=== PATIENT | male | born 1955 | race Caucasian/White ===

== ENCOUNTER 2017-03-21 19:13 | Observation (INO) | payer MEDICAID ==
[2017-03-21 19:16] VITALS: BMI 30.9
--- NOTE | 2017-03-21 20:00 | ED PDOC ---
Arrival/HPI - General Chief Complaint: Abdominal Pain Time Seen by Provider: 03/21/17 19:24 Historian: Patient - History of Present Illness Narrative History of Present Illness (Text): 03/21/17 20:00 61 year old male with no significant past medical history presents to the emergency department for evaluation of left upper abdominal discomfort that began suddenly 2 days ago and has remained constant. Patient states he is unsure how it began but states it is possible that something he lifted caused the discomfort. No nausea, vomiting, or diarrhea. No back pain. No fever or chills. Appetite intact. No chest pain or shortness of breath. No history of blunt trauma. Time/Duration: < week Symptom Onset: Sudden Symptom Course: Unchanged Modifying Factors (Text): None Past Medical History - Provider Review Nursing Documentation Reviewed: Yes - Infectious Disease Hx of Infectious Diseases: None - Tetanus Immunization Tetanus Immunization: Unknown - Past Medical History Past Medical History: No Previous - Psychiatric Hx Depression: No Hx Emotional Abuse: No Hx Physical Abuse: No Hx Substance Use: No - Past Surgical History Past Surgical History: Non-Contributing - Anesthesia Hx Anesthesia: Yes - Suicidal Assessment Feels Threatened In Home Enviroment: No Family/Social History - Physician Review Nursing Documentation Reviewed: Yes Family/Social History: Unknown Family HX Smoking Status: Never Smoked Hx Alcohol Use: No Hx Substance Use: No Hx Substance Use Treatment: No Allergies/Home Meds Allergies/Adverse Reactions: Allergies No Known Allergies Allergy (Verified 03/21/17 19:16) Home Medications: Home Meds Medication Instructions Recorded Confirmed Unobtainable 03/21/17 03/21/17 Review of Systems - Physician Review All systems were reviewed & negative as marked: Yes - Review of Systems Constitutional: Other (No chills). absent: Fevers Respiratory: absent: SOB Cardiovascular: absent: Chest Pain Gastrointestinal: Abdominal Pain (Left upper ). absent: Diarrhea, Nausea, Vomiting, Appetite Changes Musculoskeletal: absent: Back Pain Physical Exam Vital Signs Reviewed: Yes Vital Signs Temp Pulse Resp BP Pulse Ox 03/21/17 22:27 93 H 18 163/100 H 95 03/21/17 19:19 98.0 F 91 H 18 159/97 H 97 Temperature: Afebrile Blood Pressure: Normal Pulse: Regular Respiratory Rate: Normal Appearance: Positive for: Well-Appearing, Non-Toxic Mental Status: Positive for: Alert and Oriented X 3 - Systems Exam Head: Present: Atraumatic, Normocephalic Pupils: Present: PERRL Extroacular Muscles: Present: EOMI Conjunctiva: Present: Normal Mouth: Present: Moist Mucous Membranes Neck: Present: Normal Range of Motion, Other (Supple) Respiratory/Chest: Present: Clear to Auscultation, Good Air Exchange, Other (No palpable rib tenderness). No: Respiratory Distress, Accessory Muscle Use Cardiovascular: Present: Regular Rate and Rhythm, Normal S1, S2. No: Murmurs Abdomen: Present: Tenderness (Palpable tenderness to left upper abdominal area) , Normal Bowel Sounds. No: Distention, Peritoneal Signs, Rebound, Guarding Back: Present: Normal Inspection. No: CVA Tenderness Upper Extremity: Present: Normal Inspection, Normal ROM. No: Cyanosis, Edema Lower Extremity: Present: Normal Inspection, Normal ROM. No: Edema Neurological: Present: GCS=15, CN II-XII Intact, Speech Normal, Other (No focal neurological deficits) Skin: Present: Warm, Dry, Normal Color. No: Rashes Psychiatric: Present: Alert, Oriented x 3, Normal Insight, Normal Concentration Medical Decision Making ED Course and Treatment: Impression: 61 year old male with no significant past medical history presents to the emergency department for evaluation of left upper abdominal discomfort that began suddenly 2 days ago and has remained constant. Differential Diagnosis included but are not limited to: intractable abdominal pain Plan: -- CT Abdomen/Pelvis, EKG, Chest X-ray -- Labs -- Reassess and disposition Progress Notes: 03/21/17 21:24 Reviewed EKG, NSR at [address]-segment elevations or depressions, no T-wave inversions, normal intervals. Chest X-ray shows: hypoinflation. Retrocardiac opacity of unclear significance. Recommend chest PA and lateral or CT of the chest for further evaluation. 03/21/17 23:[address] Chest, shows: Unremarkable noncontrast enhanced CT examination of the chest, as detailed above. CT Abdomen and Pelvis shows: 19 mm rounded focus of soft tissue attenuation exophytic to the upper pole of the right kidney for which a dedicated renal ultrasound is recommended, for further evaluation. 03/21/17 23:[address] Marti, who is aware and agrees with plan. Accepts pt in to hospitalist service. [facility] to [facility] observation for intractable abdominal pain. resident care assistant notified. - Lab Interpretations Lab Results: 03/21/17 20:31 03/21/17 20:31 Lab Results 03/21/17 20:31: PT 10.2, INR 0.94, APTT 28.3 03/21/17 20:31: WBC 11.3 H, RBC 6.85 H, Hgb 14.0, Hct 42.5, MCV 62.0 L, MCH 20.4 L, MCHC 32.9, RDW 17.8 H, Plt Count 186 03/21/17 20:31: Sodium 136, Potassium 4.3, Chloride 99, Carbon Dioxide 28, Anion Gap 13, BUN 18, Creatinine 0.9, Est GFR ( Amer) > 60, Est GFR (Non- Af Amer) > 60, Random Glucose 117 H, Calcium 9.2, Total Bilirubin 0.7, AST 41, ALT 31, Alkaline Phosphatase 90, Lactate Dehydrogenase 443, Total Creatine Kinase 96, Troponin I < 0.01, Total Protein 7.9, Albumin 4.1, Globulin 3.8, Albumin/Globulin Ratio 1.1, Lipase 163 I have reviewed the lab results: Yes - RAD Interpretation Narrative RAD Interpretations (Text): CT Chest shows: Lungs: No mass. No consolidation. Pleural spaces: No significant effusion. No pneumothorax. Heart: No cardiomegaly. No significant pericardial effusion. Vasculature: No aortic aneurysm. Lymph nodes: No pathologically enlarged lymph nodes. Bones: No acute fracture. IMPRESSION: Unremarkable noncontrast enhanced CT examination of the chest, as detailed above. CT Abdomen and Pelvis shows: Lower thorax: The bilateral lung bases are clear. ABDOMEN: Liver: No acute findings Gallbladder and bile ducts: No acute finding. No calcified stones. No intra- extrahepatic biliary ductal dilation. Pancreas: Limited evaluation secondary to the lack of intravenous contrast. Spleen: No acute findings. Adrenals: No acute findings. Kidneys and ureters: No obstructing stones. No hydronephrosis. A 19 mm focus of soft tissue attenuation is identified within the upper pole of the right kidney. Moderate right-sided perinephric inflammatory change is identified. PELVIS: Bladder: No acute findings. Reproductive: No acute findings. Appendix: The appendix is of normal-caliber (series 2, image 184). ABDOMEN and PELVIS: Stomach and bowel: No acute findings. Peritoneum: No acute findings. Lymph nodes: Limited evaluation without intravenous contrast. Vasculature: No aortic aneurysm. Bones: No acute fracture. IMPRESSION: 19 mm rounded focus of soft tissue attenuation exophytic to the upper pole of the right kidney for which a dedicated renal ultrasound is recommended, for further evaluation. Radiology Orders: 03/21/17 19:51 ABD & PELVIS W/O PO OR IV CONT [CT] Stat 03/21/17 19:52 CHEST PORTABLE [RAD] Stat 03/21/17 21:50 CHEST W/O CONTRAST [CT] Stat Data Lead: Radiologist - EKG Interpretation Interpreted by ED Physician: Yes Type: 12 lead EKG - Medication Orders Current Medication Orders: Discontinued Medications Iohexol (Omnipaque 350 150 Ml) Confirm Administered Dose 150 ml .ROUTE .STK-MED ONE Stop: 03/21/17 22:19 Ketorolac Tromethamine (Toradol) 30 mg IVP ONCE ONE Stop: 03/21/17 23:36 - Scribe Statement The provider has reviewed the documentation as recorded by the Johnie Sparrow Provider Scribe Attestation: All medical record entries made by the Johnie were at my direction and personally dictated by me. I have reviewed the chart and agree that the record accurately reflects my personal performance of the history, physical exam, medical decision making, and the department course for this patient. I have also personally directed, reviewed, and agree with the discharge instructions and disposition. Disposition/Present on Arrival - Present on Arrival Any Indicators Present on Arrival: No History of DVT/PE: No History of Uncontrolled Diabetes: No Urinary Catheter: No History of Decub. Ulcer: No History Surgical Site Infection Following: None - Disposition Have Diagnosis and Disposition been Completed?: Yes Diagnosis: Intractable abdominal pain Disposition: HOSPITALIZED Disposition Time: 23:43 Patient Plan: Observation Condition: STABLE Referrals: Latasha Peng MD [Primary Care Provider] - Follow up with primary
--- NOTE | 2017-03-21 20:35 | RAD ---
HISTORY: abdominal pain COMPARISON: Chest x-ray performed 12/08/13 TECHNIQUE: Chest, one view. FINDINGS: Examination limited by habitus and hypoinflation. LUNGS: Retrocardiac opacity of unclear significance. Please note that chest x-ray has limited sensitivity for the detection of pulmonary masses. PLEURA: No significant pleural effusion identified. No definite pneumothorax . CARDIOVASCULAR: Heart size appears within normal limits. Atherosclerotic calcifications. OSSEOUS STRUCTURES: Degenerative changes of the spine. VISUALIZED UPPER ABDOMEN: Eventration of the right hemidiaphragm. OTHER FINDINGS: None. IMPRESSION: Hypoinflation. Retrocardiac opacity of unclear significance. Recommend chest PA and lateral or CT of the chest for further evaluation.
[2017-03-21 20:58] LABS: HEMATOCRIT 42.5 % (42.0-52.0); MEAN CORPUSCULAR HEMOGLOBIN 20.4 pg (25.0-35.0); MEAN CORPUSCULAR HGB CONC 32.9 g/dl (31.0-37.0); PLATELET COUNT 186 10^3/uL (120.0-450.0); RED CELL DISTRIBUTION WIDTH 17.8 % (11.5-14.5); WHITE BLOOD COUNT 11.3 10^3/ul (4.5-11.0)
[2017-03-21 21:05] LABS: ALB/GLOB RATIO 1.1 (1.1-1.8); ALKALINE PHOSPHATASE 90 U/L (38-133); ALT/SGPT 31 U/L (7-56); AST/SGOT 41 U/L (15-59); BILIRUBIN,TOTAL 0.7 mg/dL (0.2-1.3); BLOOD UREA NITROGEN 18 mg/dL (7-21); CALCIUM 9.2 mg/dL (8.4-10.5); CARBON DIOXIDE 28 mmol/L (21-33); CHLORIDE 99 mmol/L (98-107); GFR AFRICAN-AMERICAN > 60; GLUCOSE,RANDOM 117 mg/dL (70-110); LIPASE 163 U/L (23-300); POTASSIUM 4.3 mmol/L (3.6-5.0); SODIUM 136 mmol/L (132-148); TOTAL PROTEIN 7.9 g/dL (5.8-8.3)
[2017-03-21 21:11] LABS: INR 0.94 (0.93-1.08); PARTIAL THROMBOPLASTIN TIME 28.3 Seconds (23.7-30.8)
[2017-03-21 21:22] LABS: TROPONIN I < 0.01 ng/mL
--- NOTE | 2017-03-21 23:23 | CT ---
EXAM: CT Abdomen and Pelvis Without Intravenous Contrast CLINICAL HISTORY: 61 years old, male; Pain; Abdominal pain; Generalized; Additional info: Left upper abdominal pain TECHNIQUE: Axial computed tomography images of the abdomen and pelvis without intravenous contrast. This CT exam was performed using one or more of the following dose reduction techniques: automated exposure control, adjustment of the mA and/or kV according to patient size, and/or use of iterative reconstruction technique. Coronal and sagittal reformatted images were created and reviewed. COMPARISON: No relevant prior studies available. FINDINGS: Lower thorax: The bilateral lung bases are clear. ABDOMEN: Liver: No acute findings Gallbladder and bile ducts: No acute finding. No calcified stones. No intra-extrahepatic biliary ductal dilation. Pancreas: Limited evaluation secondary to the lack of intravenous contrast. Spleen: No acute findings. Adrenals: No acute findings. Kidneys and ureters: No obstructing stones. No hydronephrosis. A 19 mm focus of soft tissue attenuation is identified within the upper pole of the right kidney. Moderate right-sided perinephric inflammatory change is identified. PELVIS: Bladder: No acute findings. Reproductive: No acute findings. Appendix: The appendix is of normal-caliber (series 2, image 184). ABDOMEN and PELVIS: Stomach and bowel: No acute findings. Peritoneum: No acute findings. Lymph nodes: Limited evaluation without intravenous contrast. Vasculature: No aortic aneurysm. Bones: No acute fracture. IMPRESSION: 19 mm rounded focus of soft tissue attenuation exophytic to the upper pole of the right kidney for which a dedicated renal ultrasound is recommended, for further evaluation. EXAM: CT Chest Without Intravenous Contrast CLINICAL HISTORY: 61 years old, male; Pain; Abdominal pain; Generalized; Additional info: Left upper abdominal pain TECHNIQUE: Axial computed tomography images of the chest without intravenous contrast. COMPARISON: No relevant prior studies available. FINDINGS: Lungs: No mass. No consolidation. Pleural spaces: No significant effusion. No pneumothorax. Heart: No cardiomegaly. No significant pericardial effusion. Vasculature: No aortic aneurysm. Lymph nodes: No pathologically enlarged lymph nodes. Bones: No acute fracture. IMPRESSION: Unremarkable noncontrast enhanced CT examination of the chest, as detailed above.
[2017-03-22] MEDS ORDERED: Magnesium Citrate Oral SOL (300 ml) PO ONE (00:36)
[2017-03-22] MEDS ORDERED: Albuterol 0.083% Inhal Sol (2.5 mg/3 mL) UD IH PRN (00:37)
[2017-03-22] MEDS ORDERED: Alum-Mag Hydrox-Simethicone Susp (30 mL) PO STA (00:38)
--- NOTE | 2017-03-22 00:44 | CP.PCM.HP ---
<CamillaCristino armijo - Last Filed: 03/22/17 00:41> History of Present Illness - History of Present Illness History of Present Illness: CC: Abdominal Pain This is a 61yo M who has a PMHx of Gout who is presenting to the ED w/ a 2d history of constipation after eating street food in [facility]; states after he ate it instead of having his normal 3 bowel movements a day he is only having 2 bowel movements a day which is causing him great discomfort. It is not associated with any other symptoms; no fevers/chills, DONALDSON, CP, SOB, N/V/D, dysuria/freq/urg, or lower extremity pain/swelling. FamHx: Denies Surgical history: states had some surgery in [place] to remove nerve pain in his face Allergies: Denies Meds: Allopurinol Social: Lives at home, belarusian speaking, denies any history of smoking/drugs/ alcohol Present on Admission - Present on Admission Any Indicators Present on Admission: No History of DVT/PE: No History of Uncontrolled Diabetes: No Urinary Catheter: No Decubitus Ulcer Present: No Past Patient History - Infectious Disease Hx of Infectious Diseases: None - Tetanus Immunizations Tetanus Immunization: Unknown - Past Social History Smoking Status: Never Smoked - PSYCHIATRIC Hx Depression: No Hx Emotional Abuse: No Hx Physical Abuse: No Hx Substance Use: No - SURGICAL HISTORY Hx Surgeries: No - ANESTHESIA Hx Anesthesia: Yes Meds Allergies/Adverse Reactions: Allergies Allergy/AdvReac Type Severity Reaction Status Date / Time No Known Allergies Allergy Verified 03/21/17 19:16 Physical Exam - Constitutional Appears: Well, Non-toxic - Head Exam Head Exam: ATRAUMATIC - Eye Exam Eye Exam: EOMI, Normal appearance - ENT Exam ENT Exam: Mucous Membranes Moist - Neck Exam Neck exam: Positive for: Full Rom. Negative for: Lymphadenopathy - Respiratory Exam Respiratory Exam: Clear to Auscultation Bilateral, NORMAL BREATHING PATTERN. absent: Rales, Rhonchi, Wheezes - Cardiovascular Exam Cardiovascular Exam: REGULAR RHYTHM - GI/Abdominal Exam GI & Abdominal Exam: Normal Bowel Sounds, Soft, Tenderness (on the LUQ only in ONE spot right under the ribs, no where else in the LUQ is tender) - Extremities Exam Extremities exam: Positive for: full ROM, normal inspection. Negative for: calf tenderness - Back Exam Back exam: NORMAL INSPECTION. absent: CVA tenderness (L), CVA tenderness (R) - Neurological Exam Neurological exam: Alert, Oriented x3 - Psychiatric Exam Psychiatric exam: Normal Affect - Skin Skin Exam: Warm Additional comments: Red blanching rash on trunk that is not itchy, not causing any pain, around his umbilicus as well Results - Vital Signs Recent Vital Signs: Last Vital Signs Temp 98.0 F 03/21/17 19:19 Pulse 91 H 03/22/17 00:17 Resp 18 03/22/17 00:17 BP 154/93 H 03/22/17 00:17 Pulse Ox 95 03/22/17 00:17 - Labs Result Diagrams: 03/21/17 20:31 03/21/17 20:31 Assessment & Plan - Assessment and Plan (Free Text) Assessment: 61yo M admitted for abdominal pain Abdominal Pain -dry abdominal CT showed right renal cyst; no other findings; stool seen in ascending colon -patient given magnesium citrate to aid in constipation; no signs of obstruction ; there is only pain when you press on the one specific area in the LUQ; rest of the abdomen is soft tender and patient is in absolutely no discomfort at rest ; no N/V/D; most likely from mild constipation; patient has never had outpatient colonoscopy -lipase WNL -to r/o any kind of mesenteric ischemia (patient has no history of afibb or irregular heartbeat) will follow up lactic acid level -f/u HBA1C; glucose was mildly elevated on CMP testing Gout -patient only on medicines when he has flares Proph Pepcid Maalox Heart Healthy Diet SCD/OOB as tolerated Decision To Admit - Pt Status Changed To: Hospital Disposition Of: Observation - . Bed Request Type: Med/Surg Admitting Physician: Tess Marti <Tess Marti - Last Filed: 03/22/17 02:59> Results - Vital Signs Recent Vital Signs: Last Vital Signs Temp 98.0 F 03/21/17 19:19 Pulse 91 H 03/22/17 00:17 Resp 18 03/22/17 00:17 BP 154/93 H 03/22/17 00:17 Pulse Ox 95 03/22/17 00:17 - Labs Result Diagrams: 03/21/17 20:31 03/21/17 20:31 Labs: Laboratory Results - last 24 hr 03/22/17 01:15 pO2 42 VBG pH 7.42 VBG pCO2 48.0 VBG HCO3 31.1 H VBG Total CO2 32.6 H VBG O2 Sat (Calc) 82.0 H VBG Base Excess 5.5 H VBG Potassium 4.2 Sodium 135.0 Chloride 101.0 Glucose 131 H Lactate 1.4 FiO2 21.0 Venous Blood Potassium 4.2 Attending/Attestation - Attestation I have personally seen and examined this patient.: Yes I have fully participated in the care of the patient.: Yes I have reviewed all pertinent clinical information: Yes Notes (Text): 03/22/17 02:58 Patient was seen when he was in bed # 3 in the ER with medical front desk specialist. Agree with history, physical examination, assessment and plan.
[2017-03-22 01:24] LABS: VENOUS BLOOD GAS BASE EXCESS 5.5 mmol/L (0.0-2.0); VENOUS BLOOD PH 7.42 (7.32-7.43)
[2017-03-22 08:21] VITALS: O2SAT 96
[2017-03-22 08:29] LABS: ALB/GLOB RATIO 1.2 (1.1-1.8); ALKALINE PHOSPHATASE 106 U/L (38-133); ALT/SGPT 35 U/L (7-56); AST/SGOT 30 U/L (15-59); BILIRUBIN,TOTAL 0.7 mg/dL (0.2-1.3); BLOOD UREA NITROGEN 17 mg/dL (7-21); CALCIUM 9.2 mg/dL (8.4-10.5); CARBON DIOXIDE 28 mmol/L (21-33); CHLORIDE 100 mmol/L (98-107); CHOLESTEROL 203 mg/dL (130-200); GFR AFRICAN-AMERICAN > 60; GLUCOSE,RANDOM 119 mg/dL (70-110); POTASSIUM 4.3 mmol/L (3.6-5.0); SODIUM 138 mmol/L (132-148); TOTAL PROTEIN 8.1 g/dL (5.8-8.3)
[2017-03-22 10:01] LABS: URINE APPEARANCE CLEAR (CLEAR); URINE BILIRUBIN NEGATIVE (NEGATIVE); URINE BLOOD NEGATIVE (NEGATIVE); URINE COLOR YELLOW (YELLOW); URINE GLUCOSE (UA) NEGATIVE (NEGATIVE); URINE KETONE NEGATIVE (NEGATIVE); URINE LEUKOCYTE ESTERASE NEGATIVE Leu/uL (NEGATIVE); URINE PROTEIN 30 mg/dL (<30 mg/dL)
[2017-03-22 10:04] LABS: URINE RBC 0 - 2 /hpf (0-2); URINE WBC 0 - 2 /hpf (0-6)
[2017-03-22 10:05] LABS: URINE AMORPHOUS SEDIMENT FEW; URINE BACTERIA MANY (NEG); URINE TRIPLE PHOSPHATE CRYSTAL FEW /hpf
--- NOTE | 2017-03-22 12:23 | US ---
PROCEDURE: Ultrasound of the Kidneys HISTORY: LUQ pain., 19 mm lesion right upper pole on CT abd COMPARISON: None available. TECHNIQUE: Sonogram of the kidneys. FINDINGS: RIGHT KIDNEY: Measures: 11.1 x 5.1 x 6.2 cm. 1.0 x 0.6 x 0.6 cm probable cyst. No obstructing calculus or hydronephrosis identified. LEFT KIDNEY: Measures: 11.0 x 5.3 x 5.7 cm. 2.4 x 1.9 x 2.2 cm hypoechoic avascular exophytic lesion, likely cyst. No obstructing calculus or hydronephrosis identified. OTHER FINDINGS: None. IMPRESSION: 2.4 x 1.9 x 2.2 cm hypoechoic avascular exophytic left renal lesion, likely cyst. 1.0 x 0.6 x 0.6 cm probable right renal cyst.
--- NOTE | 2017-03-22 17:17 | CON ---
DATE: 03/22/2017 This patient was seen and evaluated earlier today. Discussed with ____, Dr. Boyd. This 61-year -old patient admitted with complaints of pain in the left upper quadrant area. This started about . The pain got progressively worse. Presented to the Emergency Room. He did not have this si milar episode in the past. History of some constipation. Did have bowel movements now, feeling much better now. He has concerned about the pain. The patient had a CAT scan of the abdomen and pelvis done without p.o. or IV contrast and he is reported to have some 19 mm rounded focus of soft tissue a ttenuation ____ in the upper pole of the right kidney. The patient is awaiting for renal input. Ove rall, patient is now feeling better. He is now also tolerating the diet. PAST MEDICAL HISTORY: His other past medical history is significant for trigeminal neuralgia. He baxter d a laser therapy in [place] with good improvement. This was done on the right side. The patient also has history of gouty arthritis, has dyslipidemia, has dizziness, vertigo. His other past medical his tory significant for as above. SOCIAL HISTORY: Denies smoking. No alcohol. REVIEW OF SYSTEMS: Positive as above. PHYSICAL EXAMINATION: GENERAL: The patient is lying on the bed, not in acute distress. VITAL SIGNS: Temperature is 98, blood pressure 142/86, pulse 84, respirations 18, O2 saturation 96. HEENT: Atraumatic, anicteric. NECK: Supple. HEART: S1, S2 heard. LUNGS: Bilateral air entry present. ABDOMEN: Soft. There is no mass palpable. I could not appreciate any obvious tenderness at this po int. EXTREMITIES: No edema. No cyanosis. NEUROLOGIC: Alert, oriented. Moves all the extremities. LABORATORY DATA: Hemoglobin 14, hematocrit 42.5, WBC 11.3, platelets 186. The LFTs are essentially unremarkable. Urinalysis was also negative. CT of the abdomen and pelvis was reviewed. IMPRESSION: A 61-year-old patient admitted with acute onset of left upper quadrant abdominal pain, e tiology is unclear. The patient does have some improvement after the bowel movements. The CAT scan also showed some exophytic lesion in the right kidney area. Had an ultrasound done, this is suggesti ve of cystic lesion. The patient is awaiting to see neurologist. The patient's family was at bedside. The patient never had a colonoscopy done. Would recommend: 1. To continue empirically proton pump inhibitors. 2. Slowly advance diet. 3. The patient would need an EGD and a colonoscopy as an outpatient. We will continue to closely fo llow up his care and suggest further management based on the clinical course. Thank you very much for allowing us to participate in the care of the patient. Crissy Stokes MD cc: [phone] TT: 03/22/2017 17:17:10 Confirmation # [id number] Dictation # [id number]
--- NOTE | 2017-03-22 22:07 | CARD ---
APPROVED REPORT EKG Measurement Heart [id number] <Conclusion> Normal sinus rhythm Normal ECG
[2017-03-23 07:29] LABS: ADD MANUAL DIFF? NO
[2017-03-23 07:33] LABS: BASO # 0.02 K/mm3 (0.0-2.0); BASO % 0.2 % (0.0-3.0); EOS # 0.1 (0.0-0.7); EOS % 1.7 % (1.5-5.0); GRAN # 5.74 (1.4-6.5); GRAN % 68.2 % (50.0-68.0); HEMATOCRIT 43.8 % (42.0-52.0); LYMPH # 1.9 (1.2-3.4); LYMPH % 22.1 % (22.0-35.0); MEAN CELL VOLUME 61.7 fL (80.0-105.0); MEAN CORPUSCULAR HEMOGLOBIN 20.1 pg (25.0-35.0); MEAN CORPUSCULAR HGB CONC 32.6 g/dl (31.0-37.0); MONO # 0.7 (0.1-0.6); MONO % 7.8 % (1.0-6.0); PLATELET COUNT 194 10^3/uL (120.0-450.0); RED CELL DISTRIBUTION WIDTH 17.5 % (11.5-14.5); WHITE BLOOD COUNT 8.4 10^3/ul (4.5-11.0)
[2017-03-23 07:45] LABS: ALB/GLOB RATIO 1.1 (1.1-1.8); ALKALINE PHOSPHATASE 93 U/L (38-133); ALT/SGPT 38 U/L (7-56); AST/SGOT 33 U/L (15-59); BILIRUBIN,TOTAL 0.5 mg/dL (0.2-1.3); BLOOD UREA NITROGEN 16 mg/dL (7-21); CALCIUM 8.9 mg/dL (8.4-10.5); CARBON DIOXIDE 26 mmol/L (21-33); CHLORIDE 100 mmol/L (98-107); GFR AFRICAN-AMERICAN > 60; GLUCOSE,RANDOM 190 mg/dL (70-110); MAGNESIUM 1.9 mg/dL (1.7-2.2); PHOSPHOROUS 3.1 mg/dL (2.5-4.5); POTASSIUM 3.9 mmol/L (3.6-5.0); SODIUM 136 mmol/L (132-148); TOTAL PROTEIN 7.6 g/dL (5.8-8.3)
[2017-03-23 08:34] VITALS: BP 137/96; PULSE 84; RESP 16; TEMP 98
--- NOTE | 2017-03-23 14:18 | CP.PCM.DIS ---
<Ramón Calvillo - Last Filed: 03/23/17 14:11> Provider - Provider Date of Admission: 03/21/17 23:41 Attending physician: Khloe Boyd MD Primary care physician: Latasha Peng MD Consults: GI, Urology Time Spent in preparation of Discharge (in minutes): 45 Diagnosis - Discharge Diagnosis (1) Renal cyst Status: Acute Hospital Course - Lab Results Lab Results: Micro Results 03/22/17 09:44 Urine Urine Culture - Final No Growth (<1,000 CFU/ML) Most Recent Lab Values WBC 8.4 10^3/ul (4.5-11.0) D 03/23/17 07:00 RBC 7.10 10^6/uL (3.5-6.1) H 03/23/17 07:00 Hgb 14.3 gm/dL (14.0-18.0) 03/23/17 07:00 Hct 43.8 % (42.0-52.0) 03/23/17 07:00 MCV 61.7 fL (80.0-105.0) L 03/23/17 07:00 MCH 20.1 pg (25.0-35.0) L 03/23/17 07:00 MCHC 32.6 g/dl (31.0-37.0) 03/23/17 07:00 RDW 17.5 % (11.5-14.5) H 03/23/17 07:00 Plt Count 194 10^3/uL (120.0-450.0) 03/23/17 07:00 Gran % 68.2 % (50.0-68.0) H 03/23/17 07:00 Lymph % (Auto) 22.1 % (22.0-35.0) 03/23/17 07:00 Moody % (Auto) 7.8 % (1.0-6.0) H 03/23/17 07:00 Eos % (Auto) 1.7 % (1.5-5.0) 03/23/17 07:00 Baso % (Auto) 0.2 % (0.0-3.0) 03/23/17 07:00 Gran # 5.74 (1.4-6.5) 03/23/17 07:00 Lymph # 1.9 (1.2-3.4) 03/23/17 07:00 Moody # 0.7 (0.1-0.6) H 03/23/17 07:00 Eos # 0.1 (0.0-0.7) 03/23/17 07:00 Baso # 0.02 K/mm3 (0.0-2.0) 03/23/17 07:00 PT 10.2 Seconds (9.9-11.8) 03/21/17 20:31 INR 0.94 (0.93-1.08) 03/21/17 20:31 APTT 28.3 Seconds (23.7-30.8) 03/21/17 20:31 pO2 42 mm/Hg (30-55) 03/22/17 01:15 VBG pH 7.42 (7.32-7.43) 03/22/17 01:15 VBG pCO2 48.0 (40-60) 03/22/17 01:15 VBG HCO3 31.1 mmol/l (21-28) H 03/22/17 01:15 VBG Total CO2 32.6 mmol.L (22-28) H 03/22/17 01:15 VBG O2 Sat (Calc) 82.0 % (40-65) H 03/22/17 01:15 VBG Base Excess 5.5 mmol/L (0.0-2.0) H 03/22/17 01:15 VBG Potassium 4.2 mmol/L (3.6-5.2) 03/22/17 01:15 Sodium 135.0 mmol/L (132-148) 03/22/17 01:15 Chloride 101.0 mmol/L (98-107) 03/22/17 01:15 Glucose 131 mg/dl (75-110) H 03/22/17 01:15 Lactate 1.4 mmol/L (0.7-2.1) 03/22/17 01:15 FiO2 21.0 % 03/22/17 01:15 Sodium 136 mmol/L (132-148) 03/23/17 07:00 Potassium 3.9 mmol/L (3.6-5.0) 03/23/17 07:00 Chloride 100 mmol/L (98-107) 03/23/17 07:00 Carbon Dioxide 26 mmol/L (21-33) 03/23/17 07:00 Anion Gap 14 (10-20) 03/23/17 07:00 BUN 16 mg/dL (7-21) 03/23/17 07:00 Creatinine 1.0 mg/dL (0.5-1.4) 03/23/17 07:00 Est GFR ( Amer) > 60 03/23/17 07:00 Est GFR (Non-Af Amer) > 60 03/23/17 07:00 Random Glucose 190 mg/dL (70-110) H 03/23/17 07:00 Hemoglobin A1c 6.8 % (4.2-6.5) H 03/22/17 01:15 Calcium 8.9 mg/dL (8.4-10.5) 03/23/17 07:00 Phosphorus 3.1 mg/dL (2.5-4.5) 03/23/17 07:00 Magnesium 1.9 mg/dL (1.7-2.2) 03/23/17 07:00 Total Bilirubin 0.5 mg/dL (0.2-1.3) 03/23/17 07:00 AST 33 U/L (15-59) 03/23/17 07:00 ALT 38 U/L (7-56) 03/23/17 07:00 Alkaline Phosphatase 93 U/L (38-133) 03/23/17 07:00 Lactate Dehydrogenase 443 U/L (333-699) 03/21/17 20:31 Total Creatine Kinase 96 U/L (35-230) 03/21/17 20:31 Troponin I < 0.01 ng/mL 03/21/17 20:31 Total Protein 7.6 g/dL (5.8-8.3) 03/23/17 07:00 Albumin 3.9 g/dL (3.0-4.8) 03/23/17 07:00 Globulin 3.6 gm/dL 03/23/17 07:00 Albumin/Globulin Ratio 1.1 (1.1-1.8) 03/23/17 07:00 Triglycerides 202 mg/dL (35-160) H 03/22/17 07:00 Cholesterol 203 mg/dL (130-200) H 03/22/17 07:00 LDL Cholesterol Direct 135 mg/dL (0-129) H 03/22/17 07:00 HDL Cholesterol 41 mg/dL (29-60) 03/22/17 07:00 Lipase 163 U/L (23-300) 03/21/17 20:31 TSH 3rd Generation 0.71 mIU/mL (0.46-4.68) 03/22/17 07:00 Venous Blood Potassium 4.2 mmol/L (3.6-5.2) 03/22/17 01:15 Urine Color Yellow (YELLOW) 03/22/17 09:44 Urine Appearance Clear (CLEAR) 03/22/17 09:44 Urine pH 8.0 (4.7-8.0) 03/22/17 09:44 Ur Specific Omro 1.015 (1.005-1.035) 03/22/17 09:44 Urine Protein 30 mg/dL (<30 mg/dL) H 03/22/17 09:44 Urine Glucose (UA) Negative mg/dL (NEGATIVE) 03/22/17 09:44 Urine Ketones Negative mg/dL (NEGATIVE) 03/22/17 09:44 Urine Blood Negative (NEGATIVE) 03/22/17 09:44 Urine Nitrate Negative (NEGATIVE) 03/22/17 09:44 Urine Bilirubin Negative (NEGATIVE) 03/22/17 09:44 Urine Urobilinogen 1.0 E.U./dL (<1 E.U./dL) H 03/22/17 09:44 Ur Leukocyte Esterase Negative Johnna/uL (NEGATIVE) 03/22/17 09:44 Urine RBC 0 - 2 /hpf (0-2) 03/22/17 09:44 Urine WBC 0 - 2 /hpf (0-6) 03/22/17 09:44 Ur Epithelial Cells None /hpf (0-5) 03/22/17 09:44 Triple Phos Crystals Few /hpf 03/22/17 09:44 Amorphous Sediment Few 03/22/17 09:44 Urine Bacteria Many (NEG) 03/22/17 09:44 Urine Other Fiber 03/22/17 09:44 - Hospital Course Hospital Course: 61yo M with pmh of gout presents to the ED with abdominal pain. In the ED basic labwork was done. CXR was done and showed hypoinflation and retrocardiac opacities of unclear signoficant rec CT chest. CT chest was unremarkable. CT Abdome& pelvis showed 19mm rounded focus small tissue attenuation and recommended abdominal US which showed 2.4/1.9/2.2 cm hypoechoic avascular exophytic L renal lesion likely cyst and 1.0/ .6/.6 probable R renal cyst. Pt pain was controlled and admitted to the floor for closer observation. GI was consulted and recommended outpatient work up of endoscopy and colonoscopy, continue PPI, slowly advance diet. Urology was consulted and recommended an outpatient work up of renal lesion likely cysts. Today pt states that he feels much better. No complaints at this time. Abdominal pain much improved. Denies any baxter, sob, cp, n/v/d. DDx: Abdominal pain, renal cyst Discharge Exam - Head Exam Head Exam: ATRAUMATIC - Eye Exam Eye Exam: EOMI, Normal appearance, PERRL Pupil Exam: NORMAL ACCOMODATION, PERRL - Respiratory Exam Respiratory Exam: Clear to PA & Lateral. absent: Rales, Rhonchi, Wheezes - Cardiovascular Exam Cardiovascular Exam: REGULAR RHYTHM, RRR, +S1, +S2 - GI/Abdominal Exam GI & Abdominal Exam: Normal Bowel Sounds, Soft. absent: Tenderness - Neurological Exam Neurological exam: Alert, CN II-XII Intact, Normal Gait, Oriented x3, Reflexes Normal - Psychiatric Exam Psychiatric exam: Normal Affect, Normal Mood - Skin Skin Exam: Dry, Intact, Normal Color, Warm Discharge Plan - Follow Up Plan Condition: IMPROVED Disposition: HOME/ ROUTINE Patient education suggested?: Yes Instructions: Abdominal Pain (ED) Additional Instructions: Please follow up with your PMD with in 2-3 days. If your symptoms recur come back to the closest ED. Follow up with your urologist with in 1 week. Referrals: Stephon Valverde MD [Staff Provider] - Latasha Peng MD [Primary Care Provider] - Crissy Stokes MD [Medical Doctor] - <Khloe Boyd - Last Filed: 03/23/17 14:39> Provider - Provider Date of Admission: 03/21/17 23:41 Attending physician: Khloe Boyd MD Primary care physician: Latasha Peng MD Hospital Course - Lab Results Lab Results: Micro Results 03/22/17 09:44 Urine Urine Culture - Final No Growth (<1,000 CFU/ML) Most Recent Lab Values WBC 8.4 10^3/ul (4.5-11.0) D 03/23/17 07:00 RBC 7.10 10^6/uL (3.5-6.1) H 03/23/17 07:00 Hgb 14.3 gm/dL (14.0-18.0) 03/23/17 07:00 Hct 43.8 % (42.0-52.0) 03/23/17 07:00 MCV 61.7 fL (80.0-105.0) L 03/23/17 07:00 MCH 20.1 pg (25.0-35.0) L 03/23/17 07:00 MCHC 32.6 g/dl (31.0-37.0) 03/23/17 07:00 RDW 17.5 % (11.5-14.5) H 03/23/17 07:00 Plt Count 194 10^3/uL (120.0-450.0) 03/23/17 07:00 Gran % 68.2 % (50.0-68.0) H 03/23/17 07:00 Lymph % (Auto) 22.1 % (22.0-35.0) 03/23/17 07:00 Moody % (Auto) 7.8 % (1.0-6.0) H 03/23/17 07:00 Eos % (Auto) 1.7 % (1.5-5.0) 03/23/17 07:00 Baso % (Auto) 0.2 % (0.0-3.0) 03/23/17 07:00 Gran # 5.74 (1.4-6.5) 03/23/17 07:00 Lymph # 1.9 (1.2-3.4) 03/23/17 07:00 Moody # 0.7 (0.1-0.6) H 03/23/17 07:00 Eos # 0.1 (0.0-0.7) 03/23/17 07:00 Baso # 0.02 K/mm3 (0.0-2.0) 03/23/17 07:00 PT 10.2 Seconds (9.9-11.8) 03/21/17 20:31 INR 0.94 (0.93-1.08) 03/21/17 20:31 APTT 28.3 Seconds (23.7-30.8) 03/21/17 20:31 pO2 42 mm/Hg (30-55) 03/22/17 01:15 VBG pH 7.42 (7.32-7.43) 03/22/17 01:15 VBG pCO2 48.0 (40-60) 03/22/17 01:15 VBG HCO3 31.1 mmol/l (21-28) H 03/22/17 01:15 VBG Total CO2 32.6 mmol.L (22-28) H 03/22/17 01:15 VBG O2 Sat (Calc) 82.0 % (40-65) H 03/22/17 01:15 VBG Base Excess 5.5 mmol/L (0.0-2.0) H 03/22/17 01:15 VBG Potassium 4.2 mmol/L (3.6-5.2) 03/22/17 01:15 Sodium 135.0 mmol/L (132-148) 03/22/17 01:15 Chloride 101.0 mmol/L (98-107) 03/22/17 01:15 Glucose 131 mg/dl (75-110) H 03/22/17 01:15 Lactate 1.4 mmol/L (0.7-2.1) 03/22/17 01:15 FiO2 21.0 % 03/22/17 01:15 Sodium 136 mmol/L (132-148) 03/23/17 07:00 Potassium 3.9 mmol/L (3.6-5.0) 03/23/17 07:00 Chloride 100 mmol/L (98-107) 03/23/17 07:00 Carbon Dioxide 26 mmol/L (21-33) 03/23/17 07:00 Anion Gap 14 (10-20) 03/23/17 07:00 BUN 16 mg/dL (7-21) 03/23/17 07:00 Creatinine 1.0 mg/dL (0.5-1.4) 03/23/17 07:00 Est GFR ( Amer) > 60 03/23/17 07:00 Est GFR (Non-Af Amer) > 60 03/23/17 07:00 Random Glucose 190 mg/dL (70-110) H 03/23/17 07:00 Hemoglobin A1c 6.8 % (4.2-6.5) H 03/22/17 01:15 Calcium 8.9 mg/dL (8.4-10.5) 03/23/17 07:00 Phosphorus 3.1 mg/dL (2.5-4.5) 03/23/17 07:00 Magnesium 1.9 mg/dL (1.7-2.2) 03/23/17 07:00 Total Bilirubin 0.5 mg/dL (0.2-1.3) 03/23/17 07:00 AST 33 U/L (15-59) 03/23/17 07:00 ALT 38 U/L (7-56) 03/23/17 07:00 Alkaline Phosphatase 93 U/L (38-133) 03/23/17 07:00 Lactate Dehydrogenase 443 U/L (333-699) 03/21/17 20:31 Total Creatine Kinase 96 U/L (35-230) 03/21/17 20:31 Troponin I < 0.01 ng/mL 03/21/17 20:31 Total Protein 7.6 g/dL (5.8-8.3) 03/23/17 07:00 Albumin 3.9 g/dL (3.0-4.8) 03/23/17 07:00 Globulin 3.6 gm/dL 03/23/17 07:00 Albumin/Globulin Ratio 1.1 (1.1-1.8) 03/23/17 07:00 Triglycerides 202 mg/dL (35-160) H 03/22/17 07:00 Cholesterol 203 mg/dL (130-200) H 03/22/17 07:00 LDL Cholesterol Direct 135 mg/dL (0-129) H 03/22/17 07:00 HDL Cholesterol 41 mg/dL (29-60) 03/22/17 07:00 Lipase 163 U/L (23-300) 03/21/17 20:31 TSH 3rd Generation 0.71 mIU/mL (0.46-4.68) 03/22/17 07:00 Venous Blood Potassium 4.2 mmol/L (3.6-5.2) 03/22/17 01:15 Urine Color Yellow (YELLOW) 03/22/17 09:44 Urine Appearance Clear (CLEAR) 03/22/17 09:44 Urine pH 8.0 (4.7-8.0) 03/22/17 09:44 Ur Specific Omro 1.015 (1.005-1.035) 03/22/17 09:44 Urine Protein 30 mg/dL (<30 mg/dL) H 03/22/17 09:44 Urine Glucose (UA) Negative mg/dL (NEGATIVE) 03/22/17 09:44 Urine Ketones Negative mg/dL (NEGATIVE) 03/22/17 09:44 Urine Blood Negative (NEGATIVE) 03/22/17 09:44 Urine Nitrate Negative (NEGATIVE) 03/22/17 09:44 Urine Bilirubin Negative (NEGATIVE) 03/22/17 09:44 Urine Urobilinogen 1.0 E.U./dL (<1 E.U./dL) H 03/22/17 09:44 Ur Leukocyte Esterase Negative Johnna/uL (NEGATIVE) 03/22/17 09:44 Urine RBC 0 - 2 /hpf (0-2) 03/22/17 09:44 Urine WBC 0 - 2 /hpf (0-6) 03/22/17 09:44 Ur Epithelial Cells None /hpf (0-5) 03/22/17 09:44 Triple Phos Crystals Few /hpf 03/22/17 09:44 Amorphous Sediment Few 03/22/17 09:44 Urine Bacteria Many (NEG) 03/22/17 09:44 Urine Other Fiber 03/22/17 09:44 Attending/Attestation - Attestation I have personally seen and examined this patient.: Yes I have fully participated in the care of the patient.: Yes I have reviewed all pertinent clinical information, including history, physical exam and plan: Yes Notes (Text): 03/23/17 14:27 61 year old male with past medical history of gout who presented with LUQ pain. He complained of constipation initially followed by loose stools, both of which have resolved. Workup including cxr which showed ?retrocardiac opacities. This was followed up with a CT chest which was negative. CT abd/ pelvis showed a 19mm rounded focus small tissue attenuation. This was followed up with renal ultrasound which showed 2.4/1.9/2.2 cm hypoechoic avascular exophytic left renal lesion, likely cyst, and 1.0/ 0.6/0.6 probable right renal cyst. Findings were discussed with patient and family at bedside. Patient was seen by GI who recommended outpatient EGD colonoscopy. His LUQ pain resolved. He was seen by urology who recommended outpatient follow up. Patient is discharged home today to follow up with pmd. Follow up with GI for elective EGD/colonoscopy. Follow up with urology, Dr. Garza, as above. Patient was given copy of reports. I did speak with patient's pmd Dr. Peng regarding above recommendations on day of discharge. Khloe Boyd MD Hospitalist.
--- NOTE | 2017-03-23 16:17 | PN ---
DATE: 03/23/2017 Seen and examined at the bedside earlier today. The patient denies any nausea, vomiting, or abdomina l pain. He feels better. The patient moving his bowels. No reports of overt GI bleed. VITAL SIGNS: Temperature is 98, blood pressure 137/96, pulse is 84, respirations 16, 96% room air. LABORATORIES: WBC is 8.4, H and H is 14.3, hematocrit 43.8, platelets of 194. Sodium was 136, potas sium is 3.9, BUN is 16 and creatinine is 1.0. LFTs are within normal limits. PHYSICAL EXAMINATION: HEENT: Sclera is anicteric. NECK: Supple. CARDIAC: S1, S2. LUNG SOUNDS: With decreased breath sounds but good air entry, no rales or wheeze. ABDOMEN: With bowel sounds, soft, nontender. No rebound or guarding. EXTREMITIES: No edema. NEUROLOGIC: Awake, alert, and oriented. ASSESSMENT: This is a 61-year-old male patient with acute onset of left upper abdominal pain with un known etiology. The patient had a CAT scan, which showed an exophytic lesion in the right kidney and constipation. The patient did have some improvement of abdominal pain after bowel movement. He did go for renal ultrasound, which was suggestive of a cystic lesion. The patient's other comorbidities are trigeminal neuralgia, history of dyslipidemia. PLAN: The patient is pending neurology evaluation. The patient has never had a colonoscopy before a nd discussed with patient and family member at the bedside as well as medical team that patient would benefit from an elective outpatient EGD, colonoscopy. Can slowly advance diet. Continue PPI. Spok e to the medical team, Dr. Boyd. The patient may be discharged today. The patient was seen and case discussed with Dr. Stokes. Cherie AGUILAR cc: [id number] TT: 03/23/2017 16:16:31 Confirmation # [id number] Dictation # [id number] en
--- NOTE | 2017-03-24 08:44 | PN ---
DATE: 03/23/2017 ADDENDUM This is an addendum to the GI progress report dictated by Cherie Xiao APN. The patient is now tolerating the diet. No complaints of abdominal pain. The patient did have good bowel movements. I did discuss with the patient at length regarding the importance of having an EGD and a colonoscopy to further evaluate his clinical presentation. The patient said he will follow up with the primary doctor, then transportation planning engineer, as per his recommendation. The patient ____ is rev iewed. Thank you very much for allowing us to participate in the care of this patient. Crissy Stokes MD cc: [id number] TT: 03/23/2017 20:32:33 Confirmation # [id number] Dictation # [id number] jn
== END 2017-03-23 15:00 | disposition home or self-care (01) ==
LOC: ED 19:13 → ERH 23:41 → 5RSO 03-22 00:47
PROVIDERS: ADMIT Internal Medicine; ATTEND Internal Medicine
DX: N28.1 Cyst of kidney, acquired (principal); M10.9 Gout, unspecified; E78.5 Hyperlipidemia, unspecified; R42 Dizziness and giddiness; R10.12 Left upper quadrant pain
CPT/HCPCS: 36415; 71010; 71250; 74176; 76770; 80053; 80061; 81001; 82550; 82803; 83036; 83615; 83690; 83735; 84100; 84443; 84484; 85025; 85027; 85610; 85730; 87086; 93005; 96374; 99284; G0378; J1885; Q9967